=== PATIENT | male | born 1995 | race Caucasian/White ===

== ENCOUNTER 2022-07-27 23:01 | Emergency (ER) | payer BC ==
[~2022-07-27] VITALS: Ht 167.6 cm; Wt 65.8 kg
[~2022-07-27 23:01] MED LIST: CLONAZEPAM0.5 MG PO; PROZAC20 MG PO
[2022-07-27] MEDS ORDERED: SODIUM CHLORIDE 0.9% 1000ML 1,000 ML IV STA (23:13)
[2022-07-27] MEDS ORDERED: ACETAMINOPHEN 325 MG TAB PO STA (23:13)
[2022-07-27 23:29] LABS: BASOPHILS # (AUTO) 0.1 (0.0-0.1); BASOPHILS % 0.4 % (0.0-1.0); EOSINOPHILS % 0.1 % (0.0-6.0); HEMOGLOBIN 13.3 g/dL (14.0-18.0); LYMPHOCYTES # (AUTO) 0.6 (1.0-3.2); LYMPHOCYTES % 2.9 % (18.0-39.1); MEAN CORPUSCULAR HEMOGLOBIN 29.6 pg (28-32); MEAN CORPUSCULAR HGB CONC 34.1 g/dL (31-35); MEAN CORPUSCULAR VOLUME 86.9 fL (81-99); MONOCYTES # (AUTO) 1.5 (0.2-0.8); MONOCYTES % 7.6 % (4.4-11.3); NEUTROPHILS # (AUTO) 17.6 (2.1-6.9); NEUTROPHILS % 88.6 % (38.7-80.0); PLATELET COUNT 195 x10e3/uL (140-360); RED BLOOD COUNT 4.49 x10e6/uL (4.3-5.7); RED CELL DISTRIBUTION WIDTH 12.1 % (11.7-14.4)
[2022-07-27 23:34] LABS: AMPHETAMINES SCREEN,URINE POSITIVE (NEGATIVE); BENZODIAZEPINES SCREEN,URINE NEGATIVE (NEGATIVE); CLARITY,URINE CLEAR (CLEAR); COLOR,URINE YELLOW (YELLOW); KETONES,URINE NEGATIVE (NEGATIVE); LEUKOCYTE ESTERASE ,URINE NEGATIVE (NEGATIVE); NITRITE,URINE NEGATIVE (NEGATIVE); PHENCYCLIDINE SCREEN,URINE NEGATIVE (NEGATIVE); PROTEIN,URINE DIPSTICK NEGATIVE (NEGATIVE); URINE UROBILINOGEN 1 mg/dL (0.2 - 1)
[2022-07-27] MEDS ORDERED: SODIUM CHLORIDE 0.9% 1000ML 1,000 ML ONE (23:34)
[2022-07-27] MEDS ORDERED: ACETAMINOPHEN 325 MG TAB ONE (23:34)
[2022-07-27 23:39] LABS: BACTERIA,URINE RARE /HPF; EPITHELIAL CELLS,URINE FEW /LPF; WBC,URINE (MAN) 0-5 /HPF (0-5)
[2022-07-27 23:49] LABS: ALBUMIN 4.1 g/dL (3.5-5.0); ALBUMIN/GLOBULIN RATIO 1.6 (0.8-2.0); ANION GAP 11.9 mmol/L (8-16); CALCIUM 9.2 mg/dL (8.4-10.2); CREATININE, SERUM 1.04 mg/dL (0.72-1.25); POTASSIUM 3.9 mmol/L (3.5-5.1)
[2022-07-28] MEDS ORDERED: IOPAMIDOL 370 MG/ML 100 ML INFUS..BTL INJ ONE (00:30)
[2022-07-28] MEDS ORDERED: ONDANSETRON ODT4 MG PO ×2 (02:00→02:02)
[2022-07-28] MEDS ORDERED: AUGMENTIN 500-1 EACH PO ×2 (02:00→02:02)
[2022-07-28] MEDS ORDERED: PREDNISONE20 MG PO ×2 (02:00→02:02)
[2022-07-28 02:26] VITALS: BP 119/62
== END 2022-07-28 02:18 | disposition home or self-care (01) ==
LOC: ER 23:14
DX: R10.13 Epigastric pain (principal); R11.2 Nausea with vomiting, unspecified; J02.9 Acute pharyngitis, unspecified; D72.829 Elevated white blood cell count, unspecified; Z20.822 Contact with and (suspected) exposure to COVID-19
CPT/HCPCS: 36415; 74177; 80053; 80307; 81001; 83518; 83690; 85025; 87070; 99284; J7030; Q9967; U0002